=== PATIENT | male | born 1960 ===

== ENCOUNTER → 2021-05-04 09:46 | Outpatient (CLI) | payer OTHER, SELFPAY ==
[2021-05-04 19:01] LABS: Hemoglobin A1C% w Est Avg Glu 8.9 % (4.0-6.0)
[2021-05-04 19:19] LABS: Alanine Aminotransferase 27 IU/L (<50); Albumin 4.4 g/dL (3.5-5.0); Albumin Globulin Ratio 1.4 (1.0-2.8); Alkaline Phosphatase 80 U/L (38-126); Aspartate Aminotransferase 19 IU/L (17-59); BUN Creatinine Ratio 35.4 (6-22); Bilirubin Total 0.6 mg/dL (0.2-1.3); Blood Urea Nitrogen 17 mg/dL (9-20); Calcium 9.8 mg/dL (8.4-10.2); Carbon Dioxide 27 mmol/L (22-32); Chloride 102 mmol/L (98-107); Estimated Glomerular Filt Rate > 60.0 mL/min (>60); Globulin 3.1 g/dL (1.7-4.1); Glucose 232 mg/dL (70-100); HEMOLYSIS 18 (0-50); Potassium 4.4 mmol/L (3.4-5.1); Sodium 138 mmol/L (137-145); Total Protein 7.5 g/dL (6.3-8.2)
== END ==
PROVIDERS: PCP Physician Assistant; Visit Provider Physician Assistant
DX: E11.29 Type 2 diabetes mellitus with other diabetic kidney complication (principal); E78.5 Hyperlipidemia, unspecified; R80.9 Proteinuria, unspecified
CPT/HCPCS: 80053; 83036

== ENCOUNTER → 2021-05-21 08:32 | Outpatient (CLI) | payer OTHER, SELFPAY ==
[2021-05-21 18:29] LABS: Add Manual Diff / Slide Review NO; Basophils Absolute Auto 100 /uL (0-100); Eosinophils Absolute Auto 300 /uL (0-450); Eosinophils Percent Auto 3.4 % (2-4); Hematocrit 47.5 % (41-53); Hemoglobin 16.1 g/dL (13.5-17.5); Lymphocytes Absolute Auto 2000 /uL (1100-4500); Lymphocytes Percent Auto 23.7 % (25-40); Mean Corpuscular Hemoglobin 29.4 PG (26-34); Mean Corpuscular Volume 86.5 fL (80-100); Monocytes Absolute Auto 800 /uL (0-900); Neutrophils Absolute Auto 5200 /uL (1500-7000); Neutrophils Percent Auto 61.9 % (50-75); Platelet Count 251 X10^3/uL (150-400); Red Blood Cell Count 5.49 X10^6/uL (4.5-5.9); White Blood Cell Count 8.3 X10^3/uL (4.5-11.0)
[2021-05-21 18:39] LABS: Cholesterol 150 mg/dL (140-199); HDL Cholesterol 30 mg/dL (40-60); Hemoglobin A1C% w Est Avg Glu 8.7 % (4.0-6.0); LDL Cholesterol Calculated 92 mg/dL (<100); Triglycerides 141 mg/dL (35-150)
== END ==
PROVIDERS: PCP Physician Assistant; Visit Provider Physician Assistant
DX: E11.29 Type 2 diabetes mellitus with other diabetic kidney complication (principal); E78.5 Hyperlipidemia, unspecified; M54.16 Radiculopathy, lumbar region; M54.50 Low back pain, unspecified; R29.898 Other symptoms and signs involving the musculoskeletal system; R80.9 Proteinuria, unspecified; R73.9 Hyperglycemia, unspecified
CPT/HCPCS: 80061; 83036; 85025

== ENCOUNTER → 2021-08-18 08:05 | Outpatient (CLI) | payer OTHER, SELFPAY ==
[2021-08-18 19:03] LABS: Hemoglobin A1C% w Est Avg Glu 9.2 % (4.0-6.0)
== END ==
PROVIDERS: PCP Physician Assistant; Visit Provider Physician Assistant
DX: E11.29 Type 2 diabetes mellitus with other diabetic kidney complication (principal); R80.9 Proteinuria, unspecified
CPT/HCPCS: 83036

== ENCOUNTER → 2021-11-17 08:00 | Outpatient (CLI) | payer OTHER, SELFPAY ==
[2021-11-17 18:56] LABS: Hemoglobin A1C% w Est Avg Glu 9.2 % (4.0-6.0)
[2021-11-17 19:31] LABS: Prostate Specific Antigen 0.278 ng/mL (0.10-4.00)
== END ==
PROVIDERS: PCP Physician Assistant; Visit Provider Physician Assistant
DX: C61 Malignant neoplasm of prostate (principal); E11.29 Type 2 diabetes mellitus with other diabetic kidney complication; R80.9 Proteinuria, unspecified
CPT/HCPCS: 83036; 84153